=== PATIENT | male | born 1950 | race Caucasian/White ===

== ENCOUNTER 2020-04-13 09:27 | Outpatient (REF) | payer MEDICARE, SELFPAY ==
[2020-04-13 11:23] LABS: Anion Gap 11 (12-20); Blood Urea Nitrogen 15 mg/dL (9-16); Calcium 9.5 mg/dL (8.4-10.2); Carbon Dioxide 29 mmol/L (22-29); Chloride 102 mmol/L (96-108); Estimated Glomerular Filt Rate > 60; Glucose Random 101 mg/dL (60-115); Sodium 137 mmol/L (135-145)
[2020-04-13 11:51] LABS: Erythrocyte Sedimentation Rate 2 MM/HR (0-15)
[2020-04-13 13:03] LABS: Folate > 20.0 ng/mL (> or = 4.0); Vitamin B12 584 pg/mL (200-900)
[2020-04-15 01:33] LABS: Lyme Abs Screen <0.90 index
[2020-04-15 17:57] LABS: IgA 212 mg/dL (70-320); IgG 1102 mg/dL (600-1540); IgM 124 mg/dL (50-300)
[2020-04-19 18:18] LABS: Arsenic, Random Urine 85; Cobalt, Random Urine <0.5 mcg/L; Creatinine, Random Urine 34 mg/dL (20-320)
== END 2020-04-13 09:28 | disposition home or self-care (01) ==
LOC: HO.LAB 09:27
PROVIDERS: PCP Internal Medicine; Visit Provider Psychiatry & Neurology Neurology
DX: G62.9 Polyneuropathy, unspecified (principal)
CPT/HCPCS: 36415; 80048; 82175; 82300; 82570; 82607; 82746; 82784; 83018; 83655; 83825; 85652; 86334; 86618